=== PATIENT | female | born 1940 | race Caucasian/White ===

== ENCOUNTER → 2017-03-25 | Outpatient (CLI) | payer MEDICARE ==
[~2017-03-25] MED LIST: ASPIR-LOW81 MG PO; ASPIRIN EC325 MG PO; ATENOLOL100 MG PO; HYDRODIURIL25 MG PO; LISINOPRIL20 MG PO
== END | disposition home or self-care (01) ==
LOC: NM 06:57
DX: R94.6 Abnormal results of thyroid function studies (principal)

== ENCOUNTER → 2017-12-21 | Outpatient (CLI) | payer MEDICARE | END | disposition home or self-care (01) | LOC: CARD 02:51 | DX: I47.1 Supraventricular tachycardia (principal) ==

== ENCOUNTER → 2018-05-21 | Outpatient (CLI) | payer MEDICARE | END | disposition home or self-care (01) | LOC: MAMMO 10:42 | DX: Z12.31 Encounter for screening mammogram for malignant neoplasm of breast (principal); M19.91 Primary osteoarthritis, unspecified site; Z78.0 Asymptomatic menopausal state ==

== ENCOUNTER → 2018-05-24 | Outpatient (CLI) | payer MEDICARE | END | disposition home or self-care (01) | LOC: US 00:40 → MRI 14:00 → US 15:00 | DX: I65.23 Occlusion and stenosis of bilateral carotid arteries (principal); I10 Essential (primary) hypertension ==

== ENCOUNTER → 2018-06-02 | Outpatient (CLI) | payer MEDICARE | END | disposition home or self-care (01) | LOC: MRI 05-31 14:00 | DX: R51 Headache (principal); R42 Dizziness and giddiness; I10 Essential (primary) hypertension ==

== ENCOUNTER → 2018-06-22 | Day surgery (SDC) | payer MEDICARE ==
[2018-06-22 13:15] LABS: ACT PARTIAL THROMBO TIME 25.3 SECONDS (20.8-31.5)
== END | disposition home or self-care (01) ==
LOC: SDC 02:25 → LAB 02:25 → US 11:00 → SDC 11:00 → LAB 13:00
PROVIDERS: Internal Medicine
DX: C50.512 Malignant neoplasm of lower-outer quadrant of left female breast (principal); R92.8 Other abnormal and inconclusive findings on diagnostic imaging of breast; I10 Essential (primary) hypertension; E78.2 Mixed hyperlipidemia; Z79.82 Long term (current) use of aspirin; Z88.8 Allergy status to other drugs, medicaments and biological substances; Z79.899 Other long term (current) drug therapy; Z79.01 Long term (current) use of anticoagulants

== ENCOUNTER → 2020-05-28 | Outpatient (CLI) | payer MEDICARE | END | disposition home or self-care (01) | LOC: RAD 02:13 → MAMMO 11:00 → RAD 14:00 | PROVIDERS: ATTEND Internal Medicine Hematology & Oncology | DX: Z51.11 Encounter for antineoplastic chemotherapy (principal); Z45.2 Encounter for adjustment and management of vascular access device; C50.512 Malignant neoplasm of lower-outer quadrant of left female breast; I10 Essential (primary) hypertension; R11.2 Nausea with vomiting, unspecified; D70.1 Agranulocytosis secondary to cancer chemotherapy; R21 Rash and other nonspecific skin eruption; I89.0 Lymphedema, not elsewhere classified; L03.90 Cellulitis, unspecified; M85.88 Other specified disorders of bone density and structure, other site; Z78.0 Asymptomatic menopausal state ==

== ENCOUNTER → 2020-05-29 | Outpatient (CLI) | payer MEDICARE | END | disposition home or self-care (01) | LOC: MAMMO 00:57 | PROVIDERS: ATTEND Internal Medicine Hematology & Oncology | DX: R92.8 Other abnormal and inconclusive findings on diagnostic imaging of breast (principal) ==

== ENCOUNTER → 2020-11-14 | Outpatient (CLI) | payer MEDICARE | END | disposition home or self-care (01) | LOC: NM 00:44 | PROVIDERS: ATTEND Internal Medicine Hematology & Oncology | DX: C50.512 Malignant neoplasm of lower-outer quadrant of left female breast (principal); Z51.11 Encounter for antineoplastic chemotherapy; I10 Essential (primary) hypertension; R11.2 Nausea with vomiting, unspecified; D70.1 Agranulocytosis secondary to cancer chemotherapy; R21 Rash and other nonspecific skin eruption; I89.0 Lymphedema, not elsewhere classified; Z45.2 Encounter for adjustment and management of vascular access device; L03.90 Cellulitis, unspecified; R10.9 Unspecified abdominal pain ==

== ENCOUNTER → 2020-11-15 | Outpatient (CLI) | payer MEDICARE | END | disposition home or self-care (01) | LOC: CT 00:04 | PROVIDERS: ATTEND Internal Medicine Hematology & Oncology | DX: N28.1 Cyst of kidney, acquired (principal); K76.89 Other specified diseases of liver; I70.0 Atherosclerosis of aorta; K57.30 Diverticulosis of large intestine without perforation or abscess without bleeding; M48.061 Spinal stenosis, lumbar region without neurogenic claudication; M48.07 Spinal stenosis, lumbosacral region; C50.512 Malignant neoplasm of lower-outer quadrant of left female breast; I10 Essential (primary) hypertension; R11.2 Nausea with vomiting, unspecified; D70.1 Agranulocytosis secondary to cancer chemotherapy; R21 Rash and other nonspecific skin eruption; I89.0 Lymphedema, not elsewhere classified; L03.90 Cellulitis, unspecified; Z51.11 Encounter for antineoplastic chemotherapy ==

== ENCOUNTER → 2021-06-04 | Outpatient (CLI) | payer MEDICARE | END | disposition home or self-care (01) | LOC: MAMMO 13:30 | PROVIDERS: ATTEND Internal Medicine | DX: C50.212 Malignant neoplasm of upper-inner quadrant of left female breast (principal); R92.1 Mammographic calcification found on diagnostic imaging of breast; I10 Essential (primary) hypertension; R11.2 Nausea with vomiting, unspecified; D70.1 Agranulocytosis secondary to cancer chemotherapy; R21 Rash and other nonspecific skin eruption; I89.0 Lymphedema, not elsewhere classified; L03.90 Cellulitis, unspecified; Z51.11 Encounter for antineoplastic chemotherapy ==

== ENCOUNTER → 2022-02-05 | Outpatient (CLI) | payer MEDICARE | END | disposition home or self-care (01) | LOC: US 01-21 16:00 | PROVIDERS: ATTEND Internal Medicine | DX: I65.23 Occlusion and stenosis of bilateral carotid arteries (principal) ==

== ENCOUNTER → 2022-02-18 | Outpatient (CLI) | payer MEDICARE ==
[2022-02-18 13:23] LABS: CREATININE 0.95 mg/dL (0.55-1.02)
== END | disposition home or self-care (01) ==
LOC: LAB 12:52
PROVIDERS: ATTEND Internal Medicine
DX: Z01.812 Encounter for preprocedural laboratory examination (principal); I65.23 Occlusion and stenosis of bilateral carotid arteries; R42 Dizziness and giddiness

== ENCOUNTER → 2022-02-21 | Outpatient (CLI) | payer MEDICARE | END | disposition home or self-care (01) | LOC: CT 01:17 | PROVIDERS: ATTEND Internal Medicine | DX: I65.23 Occlusion and stenosis of bilateral carotid arteries (principal) ==

== ENCOUNTER → 2022-02-27 | Outpatient (CLI) | payer MEDICARE | END | disposition home or self-care (01) | LOC: CARD 02-12 08:30 | PROVIDERS: ATTEND Internal Medicine | DX: I08.0 Rheumatic disorders of both mitral and aortic valves (principal) ==

== ENCOUNTER → 2022-06-05 | Outpatient (CLI) | payer MEDICARE | END | disposition home or self-care (01) | LOC: MAMMO 00:58 | PROVIDERS: ATTEND Internal Medicine | DX: C50.512 Malignant neoplasm of lower-outer quadrant of left female breast (principal); Z51.11 Encounter for antineoplastic chemotherapy; R21 Rash and other nonspecific skin eruption; R10.9 Unspecified abdominal pain; R11.2 Nausea with vomiting, unspecified; L03.90 Cellulitis, unspecified; Z45.2 Encounter for adjustment and management of vascular access device; D70.1 Agranulocytosis secondary to cancer chemotherapy; I10 Essential (primary) hypertension; I89.0 Lymphedema, not elsewhere classified; R92.2 Inconclusive mammogram; N64.9 Disorder of breast, unspecified ==

== ENCOUNTER → 2023-02-19 | Outpatient (CLI) | payer MEDICARE ==
[~2023-02-19] MED LIST changes: +'CLONIDINE0.1 MG PO; +AMLODIPINE BESY10 MG PO; +FOSAMAX70 M1 PO; +VIT D3 R; +ZOCOR20 MG PO
== END | disposition home or self-care (01) ==
LOC: CARD 02-18 07:00
PROVIDERS: ATTEND Internal Medicine
DX: R07.9 Chest pain, unspecified (principal); R06.02 Shortness of breath

== ENCOUNTER → 2023-02-23 | Outpatient (CLI) | payer MEDICARE | END | disposition home or self-care (01) | LOC: CT 01:14 | PROVIDERS: ATTEND Internal Medicine | DX: J98.11 Atelectasis (principal); J90 Pleural effusion, not elsewhere classified; R59.1 Generalized enlarged lymph nodes; I25.10 Atherosclerotic heart disease of native coronary artery without angina pectoris ==

== ENCOUNTER → 2023-03-20 | Outpatient (CLI) | payer MEDICARE ==
[~2023-03-20] MED LIST changes: +AMLODIPINE BESYL5 MG PO; +ASPIRIN ADULT L81 M2 PO; +CARVEDILOL6.25 MG PO
== END | disposition home or self-care (01) ==
LOC: NM 01:19
PROVIDERS: ATTEND Internal Medicine Medical Oncology
DX: Z51.11 Encounter for antineoplastic chemotherapy (principal); C50.512 Malignant neoplasm of lower-outer quadrant of left female breast; I10 Essential (primary) hypertension; R11.2 Nausea with vomiting, unspecified; D70.1 Agranulocytosis secondary to cancer chemotherapy; R21 Rash and other nonspecific skin eruption; I89.0 Lymphedema, not elsewhere classified; L03.90 Cellulitis, unspecified; R10.9 Unspecified abdominal pain; Z45.2 Encounter for adjustment and management of vascular access device

== ENCOUNTER → 2023-08-05 | Outpatient (CLI) | payer MEDICARE | END | disposition home or self-care (01) | LOC: NM 02:37 | PROVIDERS: ATTEND Internal Medicine Medical Oncology | DX: Z51.11 Encounter for antineoplastic chemotherapy (principal); Z45.2 Encounter for adjustment and management of vascular access device; C50.512 Malignant neoplasm of lower-outer quadrant of left female breast; I10 Essential (primary) hypertension; I89.0 Lymphedema, not elsewhere classified; L03.90 Cellulitis, unspecified; R21 Rash and other nonspecific skin eruption; R10.9 Unspecified abdominal pain; D70.1 Agranulocytosis secondary to cancer chemotherapy; R11.2 Nausea with vomiting, unspecified ==

== ENCOUNTER → 2023-08-11 | Outpatient (CLI) | payer MEDICARE | END | disposition home or self-care (01) | LOC: CT 01:06 | PROVIDERS: ATTEND Internal Medicine Medical Oncology | DX: R91.8 Other nonspecific abnormal finding of lung field (principal); K57.30 Diverticulosis of large intestine without perforation or abscess without bleeding; K76.89 Other specified diseases of liver; C50.512 Malignant neoplasm of lower-outer quadrant of left female breast; N28.1 Cyst of kidney, acquired; I10 Essential (primary) hypertension ==

== ENCOUNTER → 2023-08-14 | Outpatient (CLI) | payer MEDICARE | END | disposition home or self-care (01) | LOC: US 03:19 | PROVIDERS: ATTEND Internal Medicine Medical Oncology | DX: Z51.11 Encounter for antineoplastic chemotherapy (principal); Z45.2 Encounter for adjustment and management of vascular access device; C50.512 Malignant neoplasm of lower-outer quadrant of left female breast; I10 Essential (primary) hypertension; R11.2 Nausea with vomiting, unspecified; D70.1 Agranulocytosis secondary to cancer chemotherapy; R21 Rash and other nonspecific skin eruption; I89.0 Lymphedema, not elsewhere classified; L03.90 Cellulitis, unspecified; R10.9 Unspecified abdominal pain; R60.0 Localized edema ==

== ENCOUNTER → 2023-09-03 | Outpatient (CLI) | payer MEDICARE | END | disposition home or self-care (01) | LOC: RAD 11:32 | PROVIDERS: ATTEND Internal Medicine Medical Oncology | DX: Z51.11 Encounter for antineoplastic chemotherapy (principal); Z45.2 Encounter for adjustment and management of vascular access device; C50.512 Malignant neoplasm of lower-outer quadrant of left female breast; I10 Essential (primary) hypertension; D70.1 Agranulocytosis secondary to cancer chemotherapy; R21 Rash and other nonspecific skin eruption; I89.0 Lymphedema, not elsewhere classified; R10.9 Unspecified abdominal pain; L03.90 Cellulitis, unspecified; R60.0 Localized edema; J90 Pleural effusion, not elsewhere classified; J98.11 Atelectasis ==

== ENCOUNTER → 2023-09-17 | Outpatient (CLI) | payer MEDICARE | END | disposition home or self-care (01) | LOC: CARD 00:14 | PROVIDERS: ATTEND Internal Medicine Medical Oncology | DX: Z51.11 Encounter for antineoplastic chemotherapy (principal); Z45.2 Encounter for adjustment and management of vascular access device; I35.8 Other nonrheumatic aortic valve disorders; C50.512 Malignant neoplasm of lower-outer quadrant of left female breast; I11.9 Hypertensive heart disease without heart failure; D70.1 Agranulocytosis secondary to cancer chemotherapy; R21 Rash and other nonspecific skin eruption; I89.0 Lymphedema, not elsewhere classified; L03.90 Cellulitis, unspecified; R10.9 Unspecified abdominal pain; R18.8 Other ascites ==